=== PATIENT | female | born 1960 | race Caucasian/White ===

== ENCOUNTER → 2018-01-24 | Outpatient (CLI) | payer BC, OTHER | LOC: ULTRA 07:20 | DX: R10.9 Unspecified abdominal pain (principal) ==

== ENCOUNTER → 2019-03-22 | Outpatient (CLI) | payer BC, OTHER | LOC: RAD 09:12 | DX: Z12.31 Encounter for screening mammogram for malignant neoplasm of breast (principal) ==

== ENCOUNTER → 2019-10-29 | Outpatient (CLI) | payer OTHER | LOC: CAT 10:48 → EDSTATUS 11:58 | PROVIDERS: ATTEND Family Medicine | DX: Z13.6 Encounter for screening for cardiovascular disorders (principal); E78.00 Pure hypercholesterolemia, unspecified; I25.10 Atherosclerotic heart disease of native coronary artery without angina pectoris ==

== ENCOUNTER 2019-11-03 14:41 | Emergency (ER) | payer BC, OTHER ==
[~2019-11-03] VITALS: Ht 165.1 cm; Wt 72.6 kg
[2019-11-03] MEDS ORDERED: ZESTRIL40 MG PO (15:10)
[2019-11-03] MEDS ORDERED: HYDROCHLOROTHIA25 M2 PO (15:11)
[2019-11-03] MEDS ORDERED: NORVASC5 M1 PO (15:11)
[2019-11-03] MEDS ORDERED: LOPRESSOR50 MG PO (15:11)
[2019-11-03 15:20] LABS: URINE BILIRUBIN NEGATIVE (Negative); URINE BLOOD 1+ (Negative); URINE CLARITY CLEAR; URINE COLOR YELLOW; URINE GLUCOSE-RANDOM* NEGATIVE (Negative); URINE KETONES NEGATIVE (Negative); URINE NITRITE-REFLEX NEGATIVE (Negative); URINE PROTEIN (DIPSTICK) NEGATIVE (Negative); URINE SPECIFIC GRAVITY <= 1.005 (1.005-1.035); URINE UROBILINOGEN 0.2 E.U./dl (0.2-1.0)
[2019-11-03 15:30] LABS: URINE LEUKOCYTES-REFLEX 2+ (Negative)
[2019-11-03 15:31] LABS: ABSOLUTE NEUTROPHILS 7.7 thou/uL (1.4-8.2); BASOPHILS 0.9 % (0.0-2.0); EOSINOPHILS 1.1 % (0.0-3.0); HEMATOCRIT 38.5 % (37.0-47.0); HEMOGLOBIN 13.3 gm/dL (12.0-15.0); LYMPHOCYTES 23.2 % (24.0-44.0); MCH 30.6 pg (26.0-34.0); MCHC 34.6 g/dL (28.0-37.0); MCV 88.3 fL (80.0-100.0); MONOCYTES 6.6 % (1.0-8.0); PLATELET COUNT 258 thou/uL (150-400); POLYS 68.2 % (36.0-66.0); RBC 4.36 mil/uL (4.20-5.00); RDW 13.4 % (10.5-14.5); WBC 11.3 thou/uL (4.0-11.0)
[2019-11-03 15:46] LABS: CALCIUM 9.2 mg/dL (8.5-10.1); CREATININE 1.3 mg/dL (0.6-1.0); TOTAL BILIRUBIN 0.5 mg/dL (0.2-1.0); TOTAL PROTEIN 7.6 g/dL (6.4-8.2)
[2019-11-03 15:50] LABS: POTASSIUM 2.7 mmol/L (3.5-5.1)
[2019-11-03 16:06] LABS: SQUAMOUS 0-3 Few /LPF (0-3)
[2019-11-03 16:07] LABS: BACTERIA-REFLEX 1-9 Few /HPF (None Seen); CRYSTALS None Seen /LPF (None Seen); URINE WBC-REFLEX 6-15 Few /HPF (0-5)
[2019-11-03 16:08] LABS: CASTS None Seen /LPF (None Seen); URINE RBC 0-2 Rare /HPF (0-2)
[2019-11-03] MEDS ORDERED: FLAGYL500 M1 PO (16:57)
[2019-11-03] MEDS ORDERED: KLOR-CON20 ME1 PO (16:57)
[2019-11-03] MEDS ORDERED: CIPRO500 M1 PO (16:57)
[2019-11-03] MEDS ORDERED: ONDANSETRON HCL4 M2 PO (16:57)
[2019-11-03] MEDS ORDERED: NORCO 5-325 TA1 EAC2 PO (17:49)
[2019-11-03 19:34] VITALS: BP 157/85
== END 2019-11-03 19:42 | disposition home or self-care (01) ==
LOC: ER 14:41
PROVIDERS: Physician Assistant
DX: K52.9 Noninfective gastroenteritis and colitis, unspecified (principal); N17.9 Acute kidney failure, unspecified; N39.0 Urinary tract infection, site not specified; E87.6 Hypokalemia; Z79.899 Other long term (current) drug therapy; Z90.49 Acquired absence of other specified parts of digestive tract

== ENCOUNTER 2021-04-01 09:15 | Emergency (ER) | payer BC, OTHER ==
[~2021-04-01] VITALS: Ht 165.1 cm; Wt 71.2 kg
[~2021-04-01 09:15] MED LIST: CIPRO500 M1 PO; FLAGYL500 M1 PO; HYDROCHLOROTHIA25 M2 PO; KLOR-CON20 ME1 PO; LOPRESSOR50 MG PO; NORCO 5-325 TA1 EAC2 PO; NORVASC5 M1 PO; ONDANSETRON HCL4 M2 PO; ZESTRIL40 MG PO
[2021-04-01 10:21] LABS: ABSOLUTE NEUTROPHILS 5.8 thou/uL (1.4-8.2); BASOPHILS 0.7 % (0.0-2.0); EOSINOPHILS 0.8 % (0.0-3.0); HEMATOCRIT 38.1 % (37.0-47.0); HEMOGLOBIN 12.8 gm/dL (12.0-15.0); LYMPHOCYTES 12.7 % (24.0-44.0); MCH 29.4 pg (26.0-34.0); MCHC 33.5 g/dL (28.0-37.0); MCV 87.7 fL (80.0-100.0); MONOCYTES 9.4 % (1.0-8.0); PLATELET COUNT 331 thou/uL (150-400); POLYS 76.4 % (36.0-66.0); RBC 4.35 mil/uL (4.20-5.00); WBC 7.5 thou/uL (4.0-11.0)
[2021-04-01 10:25] LABS: CREATININE 0.7 mg/dL (0.6-1.0); POTASSIUM 3.2 mmol/L (3.5-5.1)
[2021-04-01 10:31] LABS: TOTAL BILIRUBIN 0.5 mg/dL (0.2-1.0); TOTAL PROTEIN 6.9 g/dL (6.4-8.2)
[2021-04-01 11:59] VITALS: BP 148/74
[2021-04-01] MEDS ORDERED: NORCO7.5 PO (12:01)
[2021-04-01] MEDS ORDERED: LEVOFLOXACIN750 MG PO (12:01)
[2021-04-01] MEDS ORDERED: ZOFRAN ODT4 MG PO (12:01)
[2021-04-01] MEDS ORDERED: METRONIDAZOLE500 M4 PO (12:01)
[2021-04-01 12:05] LABS: URINE BILIRUBIN NEGATIVE (Negative); URINE BLOOD NEGATIVE (Negative); URINE CLARITY CLEAR; URINE COLOR YELLOW; URINE GLUCOSE-RANDOM* NEGATIVE (Negative); URINE KETONES NEGATIVE (Negative); URINE NITRITE-REFLEX NEGATIVE (Negative); URINE PROTEIN (DIPSTICK) NEGATIVE (Negative); URINE SPECIFIC GRAVITY <= 1.005 (1.005-1.035); URINE UROBILINOGEN 0.2 E.U./dl (0.2-1.0)
[2021-04-01 12:24] LABS: URINE LEUKOCYTES-REFLEX 1+ (Negative)
[2021-04-01 12:27] LABS: CASTS None Seen /LPF (None Seen); SQUAMOUS 0-3 Few /LPF (0-3)
[2021-04-01 12:29] LABS: BACTERIA-REFLEX None Seen /HPF (None Seen); CRYSTALS None Seen /LPF (None Seen); URINE RBC None Seen /HPF (NONE SEEN); URINE WBC-REFLEX 0-5 Rare /HPF (0-5)
== END 2021-04-01 12:42 | disposition home or self-care (01) ==
LOC: ER 09:15
PROVIDERS: Emergency Medicine
DX: K52.9 Noninfective gastroenteritis and colitis, unspecified (principal); R10.13 Epigastric pain; Z86.16 Personal history of COVID-19; Z79.899 Other long term (current) drug therapy; Z79.891 Long term (current) use of opiate analgesic; Z79.1 Long term (current) use of non-steroidal anti-inflammatories (NSAID)